=== PATIENT | female | born 1985 | race Caucasian/White ===

== ENCOUNTER 2020-04-13 18:30 | Emergency (ER) | payer SELFPAY ==
[2020-04-13] MEDS ORDERED: Ketorolac 60 MG/2 ML SDV IM ONE (18:57)
--- NOTE | 2020-04-13 19:05 | EDM.PDOC ---
ED HPI GENERAL MEDICAL PROBLEM - General Chief Complaint: General Stated Complaint: SICK Time Seen by Provider: 04/13/20 18:44 Source of Information: Reports: Patient History Limitations: Reports: No Limitations - History of Present Illness INITIAL COMMENTS - FREE TEXT/NARRATIVE: Presents reporting "lymph node pain" in my neck. She states she has had this problem for over a year. She has seen medical doctors and dentist on numerous occasions and they have not found any pathology. She does have a history of gingivitis. She states that her gums are "burning". No fever, sore throat, runny nose, itchy watery eyes, ear fullness, acid reflux, breathing problems. She states that her nodes are not really swollen right now but that they "come and go". She has had antibiotics in the past which "helped for a little while"--she would like some today. She has been eating and drinking normally. throat/jaw Pain Score (Numeric/FACES): 6 - Related Data Allergies Allergy/AdvReac Type Severity Reaction Status Date / Time No Known Allergies Allergy Verified 04/13/20 18:48 Home Meds: Home Meds Albuterol [Proair HFA] 1 - 2 puff INH ASDIRECTED PRN 04/13/20 [History] Albuterol [Proventil Neb Soln] 3 ml INH ASDIRECTED PRN 04/13/20 [History] Diclofenac Sodium [Voltaren] 75 mg PO BIDMEALS PRN #20 tab.ec 04/13/20 [Rx] Doxycycline Hyclate 1 cap PO BID #20 capsule 04/13/20 [Rx] Montelukast [Singulair] 10 mg PO DAILY 04/13/20 [History] Past Medical History Respiratory History: Reports: Asthma - Infectious Disease History Infectious Disease History: Reports: Chicken Pox - Past Surgical History Female Surgical History: Reports: Section Social & Family History - Family History Family Medical History: Noncontributory - Tobacco Use Smoking Status *Q: Current Every Day Smoker Years of Tobacco use: 10 Packs/Tins Daily: 1 - Caffeine Use Caffeine Use: Reports: Soda - Recreational Drug Use Recreational Drug Use: Yes Recreational Drug Type: Reports: Marijuana/Hashish Recreational Drug Use Frequency: Rarely ED ROS GENERAL - Review of Systems Review Of Systems: Comprehensive ROS is negative, except as noted in HPI. ED EXAM, GENERAL - Physical Exam Exam: See Below Exam Limited By: No Limitations General Appearance: Alert, No Apparent Distress Ears: Normal External Exam Nose: Normal Inspection Throat/Mouth: Normal Inspection, Normal Gums (No exudates or bleeding), Normal Oropharynx, No Airway Compromise Head: Atraumatic, Normocephalic Neck: Normal Inspection. No: Lymphadenopathy (L) (Has been unable to palpate), Lymphadenopathy (R) (Under and has been unable to palpate) Respiratory/Chest: No Respiratory Distress, Lungs Clear, Wheezing (light throughout) Cardiovascular: Normal Peripheral Pulses, Regular Rate, Rhythm, No Murmur Neurological: Alert, Oriented, Normal Cognition Psychiatric: Normal Affect, Normal Mood Skin Exam: Warm, Dry, Intact, Normal Color, No Rash Lymphatic: No Adenopathy Course - Vital Signs Last Recorded V/S: Last Vital Signs Temp 36.2 C 04/13/20 18:50 Pulse 83 04/13/20 18:50 Resp 17 04/13/20 18:50 BP 139/73 04/13/20 18:50 Pulse Ox 95 04/13/20 18:50 Departure - Departure Time of Disposition: 19:07 Disposition: Home, Self-Care 01 Condition: Good Clinical Impression: Sore neck - Discharge Information Referrals: PCP,Unknown [Primary Care Provider] - [facility] [Outside] [facility] [Outside] Additional Instructions: 1. Take your antibiotic twice daily 2. Diclofenac every 12 hours as needed for pain 3. Follow up in primary care Sepsis Event Note (ED) - Evaluation Sepsis Screening Result: No Definite Risk - Focused Exam Vital Signs: Vital Signs Temp Pulse Resp BP Pulse Ox 04/13/20 18:50 36.2 C 83 17 139/73 95
[2020-04-13] MEDS ORDERED: Acetaminophen 325 MG Tab PO ONE (19:25)
== END 2020-04-13 20:00 | disposition home or self-care (01) ==
LOC: MW.ED 18:30
DX: L98.8 Other specified disorders of the skin and subcutaneous tissue (principal); J45.909 Unspecified asthma, uncomplicated; F17.210 Nicotine dependence, cigarettes, uncomplicated; Z79.899 Other long term (current) drug therapy
CPT/HCPCS: 96372; 99283; A9270; J1885; 99282